=== PATIENT | female | born 2000 | race Hispanic/Latino ===

== ENCOUNTER 2024-12-31 13:18 | Inpatient (IN) | payer MEDICAID, OTHER, SELFPAY ==
[~2024-12-31 13:18] MED LIST: Bupivacaine 0.25% HCL 30 ML VIAL ONE
[2024-12-31 13:30] VITALS: BMI 27.4
[2024-12-31] MEDS ORDERED: hydrALAZINE 20 MG/ML VIAL SLOW IVP PRN (13:40)
[2024-12-31] MEDS ORDERED: Diphenoxylate HCl/Atropine Tablet PO PRN (13:40)
[2024-12-31] MEDS ORDERED: Lidocaine 1% (PF) 30 ML VIAL SC PRN (13:40)
[2024-12-31] MEDS ORDERED: Ondansetron PF 4 MG/2 ML Vial IVP PRN ×2 (13:40→16:22)
[2024-12-31] MEDS ORDERED: HYDROcodone/Acetaminophen 5/325 mg Tablet PO PRN (13:40)
[2024-12-31] MEDS ORDERED: Tranexamic Acid 1,000 MG/10 ML VIAL IVP PRN (13:40)
[2024-12-31] MEDS ORDERED: Carboprost 250 MCG/ML AMP IM PRN (13:40)
[2024-12-31] MEDS ORDERED: Acetaminophen 500 MG TAB PO PRN (13:40)
[2024-12-31] MEDS ORDERED: Oxytocin 30 units/NS 500 ML 500 ML IV SCH ×2 (13:45)
[2024-12-31 15:19] LABS: Hematocrit 32.3 % (34.9-44.5); Hemoglobin 10.9 g/dL (12.0-15.5); Mean Corpuscular Hemoglobin 29.9 pg (27.0-33.0); Mean Corpuscular Volume 88.7 fL (81.6-98.3); Platelet Count 253 10x3/uL (150-450); Red Blood Cell (RBC) Count 3.64 10x6/uL (3.90-5.03); White Blood Cell (WBC) Count 9.66 10x3/uL (3.5-10.5)
[2024-12-31 16:06] LABS: Syphilis Antibody Index 0.04 S/CO (<1.00 Non-Reactive)
[2024-12-31 16:08] LABS: Hep B Surf Ag - L&D Non-Reactive S/CO (NonReactive)
[2024-12-31] MEDS: fentaNYL/Ropivacaine Epidural 100 ML ONE (16:08)
[2024-12-31] MEDS ORDERED: Acetaminophen 325 MG TAB PO PRN (16:22)
[2024-12-31] MEDS ORDERED: diphenhydrAMINE 50 MG/ML VIAL IVP PRN (16:22)
[2024-12-31] MEDS ORDERED: fentaNYL 2 mcg/Ropivacaine 0.2% Epidural 100 ML CADD EPIDURAL SCH (16:30)
[2024-12-31] MEDS ORDERED: Communication Order-Pharmacy FS SCH (16:30)
[2024-12-31] MEDS: Methylergonovine 0.2 MG/ML VIAL IM PRN (20:34)
[2024-12-31] MEDS: Ibuprofen 800 MG TAB PO PRN (21:25)
[2025-01-01] MEDS ORDERED: diphenhydrAMINE 25 MG CAP PO PRN (00:04)
[2025-01-01] MEDS ORDERED: HYDROcodone/Acetaminophen 5/325 mg Tablet PO PRN (00:04)
[2025-01-01] MEDS ORDERED: Ondansetron PF 4 MG/2 ML Vial IVP PRN (00:04)
[2025-01-01] MEDS ORDERED: Lanolin Ointment 7 GM TUBE TOP PRN (00:04)
[2025-01-01] MEDS ORDERED: Bisacodyl 10 MG SUPP PR PRN (00:04)
[2025-01-01] MEDS ORDERED: Milk Of Magnesia 30 ML UDCUP PO PRN (00:04)
[2025-01-01] MEDS ORDERED: hydrALAZINE 20 MG/ML VIAL SLOW IVP PRN (00:04)
[2025-01-01] MEDS: Benzocaine-Menthol 82.5 ML CAN TOP PRN (00:48)
[2025-01-01] MEDS: Ibuprofen 800 MG TAB PO SCH (05:17)
[2025-01-01] MEDS: Ferrous Sulfate 325 MG TAB PO SCH (08:04)
[2025-01-01] MEDS: HYDROcodone/Acetaminophen 5/325 mg Tablet PO PRN (14:49)
[2025-01-01] MEDS: Boostrix 0.5 ML (Tdap) VIAL (>/=7 yrs of age) IM ONE (16:43)
[2025-01-02 07:29] VITALS: BP 119/70; TEMP 98.1
== END 2025-01-02 11:10 | disposition home or self-care (01) | DRG 807 ==
LOC: CSHLD/OP 13:18 → CSHLD 16:26 → CSHPP 23:43
PROVIDERS: ADMIT Family Medicine; ATTEND Family Medicine
PROC: 10D07Z6 Extraction of Products of Conception, Vacuum, Via Natural or Artificial Opening (ICD-10-PCS; principal; 2024-12-31)
PROC: 4A1HXCZ Monitoring of Products of Conception, Cardiac Rate, External Approach (ICD-10-PCS; 2024-12-31)
PROC: 10907ZC Drainage of Amniotic Fluid, Therapeutic from Products of Conception, Via Natural or Artificial Opening (ICD-10-PCS; 2024-12-31)
DX: O76 Abnormality in fetal heart rate and rhythm complicating labor and delivery (principal); Z37.0 Single live birth; O16.5 Unspecified maternal hypertension, complicating the puerperium; Z3A.38 38 weeks gestation of pregnancy; Z79.899 Other long term (current) drug therapy; Z79.82 Long term (current) use of aspirin
CPT/HCPCS: 36415; 51702; 85027; 86780; 86850; 86900; 86901; 87340; 99285; J0665; J2210